=== PATIENT | female | born 1990 | race Caucasian/White ===

== ENCOUNTER → 2017-01-21 | Day surgery (SDC) | payer MEDICARE ==
[~2017-01-21] MED LIST: LANSOPRAZOLE30 MG PO; ONDANSETRON HCL4 MG PO; SPRINTEC 28 DA1 EACH PO
== END | disposition home or self-care (01) ==
PROVIDERS: Internal Medicine Gastroenterology
PROC: 0DB68ZX Excision of Stomach, Via Natural or Artificial Opening Endoscopic, Diagnostic (ICD-10-PCS; principal; 2017-01-21 10:00)
DX: K29.50 Unspecified chronic gastritis without bleeding (principal); K58.1 Irritable bowel syndrome with constipation; E66.3 Overweight; K59.09 Other constipation; Z88.1 Allergy status to other antibiotic agents; Z79.899 Other long term (current) drug therapy; Z98.818 Other dental procedure status; Z82.49 Family history of ischemic heart disease and other diseases of the circulatory system; Z83.3 Family history of diabetes mellitus
CPT/HCPCS: 36415; 84436; 84443; 84480; 84703; J2250; J3010; J7030